=== PATIENT | female | born 1995 | race Caucasian/White ===

== ENCOUNTER 2017-06-06 19:45 | Emergency (ER) | payer OTHER, BC ==
[2017-06-06 20:06] VITALS: BP 126/73; PULSE 71; TEMP 97.9
--- NOTE | 2017-06-06 21:01 | PDOC ---
History of Present Illness - General History Source: Patient, Significant Other Exam Limitations: No Limitations - History of Present Illness Initial Comments: 06/06/17 21:54 The patient is a 22 year old female with a significant PMH of kidney stones and low blood pressure who presents to the emergency department with a headache, nausea, and vomiting beginning at approximately 2:00PM today. The patient reports that she was at work and got yelled at, after which the headache began on her frontal side with associated vomiting. The patient notes the headache feels like a ball within a hollow vessel that rolls to either side as she turns her head. She notes that her nausea is aggravated by walking. The patient notes having a migraine episode on her left temporal region in the past, where she reports seeing garcía. The patient reports that she is on oral contraceptives. The patient denies chest pain or shortness of breath. Denies fever, chills, diarrhea or constipation. Denies dysuria, frequency, urgency or hematuria. LMP: Currently menstruating Allergies: NKDA Past surgical history: Kidney stone removal Social history: No reported cigarette, alcohol, or drug use. <Mahad Johnson - Last Filed: 06/06/17 22:28> <Yeimy He - Last Filed: 06/07/17 02:25> - General Chief Complaint: Lightheaded Stated Complaint: FATIGUE, DIZINESS Time Seen by Provider: 06/06/17 20:55 Past History <Mahad Johnson - Last Filed: 06/06/17 22:28> - Past Medical History Anemia: No Asthma: No Cancer: No Cardiac Disorders: No CVA: No COPD: No CHF: No Dementia: No Diabetes: No GI Disorders: No Disorders: Yes (kidney stones) HTN: No Hypercholesterolemia: No Liver Disease: No Suicide Attempt (Hx): No Seizures: No Thyroid Disease: No - Surgical History Abdominal Surgery: No Appendectomy: No Cardiac Surgery: No Cholecystectomy: No Lung Surgery: No Neurologic Surgery: No Orthopedic Surgery: No - Reproductive History (#): 0 Para: 0 Therapeutic (s) & number: No Spontaneous : 0 - Immunization History Td Vaccination: Yes Immunization Up to Date: Yes - Psycho/Social/Smoking Cessation Hx Anxiety: No Suicidal Ideation: No Smoking Status: No Smoking History: Never smoked Years of Tobacco Use: 0 Number of Cigarettes Smoked Daily: 0 Cigars Per Day: 0 Information on smoking cessation initiated: No Hx Alcohol Use: No Drug/Substance Use Hx: No Substance Use Type: None Hx Substance Use Treatment: No <HeYeimy wild - Last Filed: 06/07/17 02:25> - Past Medical History Allergies/Adverse Reactions: Allergies Allergy/AdvReac Type Severity Reaction Status Date / Time No Known Drug Allergies AdvReac Unknown Verified 06/06/17 20:03 Home Medications: Ambulatory Orders Amoxicillin - [Amoxicillin 500mg Capsule -] 500 mg PO TID #21 capsule 05/11/16 Review of Systems - Review of Systems Comments:: 06/06/17 21:54 GENERAL/CONSTITUTIONAL: No fever or chills. No weakness. HEAD, EYES, EARS, NOSE AND THROAT: No change in vision. No ear pain or discharge. No sore throat. CARDIOVASCULAR: No chest pain or shortness of breath. RESPIRATORY: No cough, wheezing, or hemoptysis. GASTROINTESTINAL: (+) Nausea. (+) Vomiting. No diarrhea or constipation. GENITOURINARY: No dysuria, frequency, or change in urination. MUSCULOSKELETAL: No joint or muscle swelling or pain. No neck or back pain. SKIN: No rash NEUROLOGIC: (+) Headache. No, vertigo, loss of consciousness, or change in strength/sensation. ENDOCRINE: No increased thirst. No abnormal weight change. HEMATOLOGIC/LYMPHATIC: No anemia, easy bleeding, or history of blood clots. ALLERGIC/IMMUNOLOGIC: No hives or skin allergy. <Mahad Johnson - Last Filed: 06/06/17 22:28> *Physical Exam - Vital Signs Last Vital Signs Temp Pulse Resp BP Pulse Ox 97.9 F 71 20 126/73 100 06/06/17 20:03 06/06/17 20:03 06/06/17 20:03 06/06/17 20:03 06/06/17 20:03 - Physical Exam Comments: 06/06/17 22:28 GENERAL: Awake, alert, and fully oriented, in no acute distress HEAD: No signs of trauma EYES: PERRLA, EOMI, sclera anicteric, conjunctiva clear ENT: Auricles normal inspection, hearing grossly normal, nares patent, oropharynx clear without exudates. Moist mucosa NECK: Normal ROM, supple, no lymphadenopathy, JVD, or masses LUNGS: Breath sounds equal, clear to auscultation bilaterally. No wheezes, and no crackles HEART: Regular rate and rhythm, normal S1 and S2, no murmurs, rubs or gallops ABDOMEN: Soft, nontender, normoactive bowel sounds. No guarding, no rebound. No masses EXTREMITIES: Normal range of motion, no edema. No clubbing or cyanosis. No cords, erythema, or tenderness NEUROLOGICAL: Cranial nerves II through XII grossly intact. Normal speech, normal gait SKIN: Warm, Dry, normal turgor, no rashes or lesions noted. <Mahad Johnson - Last Filed: 06/06/17 22:28> - Vital Signs Last Vital Signs Temp Pulse Resp BP Pulse Ox 97.9 F 71 20 126/73 100 06/06/17 20:03 06/06/17 20:03 06/06/17 20:03 06/06/17 20:03 06/06/17 20:03 <Yeimy He - Last Filed: 06/07/17 02:25> ED Treatment Course - LABORATORY CBC & Chemistry Diagram: 06/06/17 21:15 06/06/17 21:15 <Mahad Johnson - Last Filed: 06/06/17 22:28> - LABORATORY CBC & Chemistry Diagram: 06/06/17 21:15 06/06/17 21:15 <Yeimy He - Last Filed: 06/07/17 02:25> Medical Decision Making - Medical Decision Making 06/07/17 02:15 Pt came with severe headache. States that it is the worst headache she experienced, and it coincided with a 2PM argument with one of her bosses at work. Pt went home and experienced vomiting at 6PM. Pt has normal labs and CT brain; CTA is also normal. Pt feels better after treatment with tylenol IV. Pt felt even better with NSS 1L and motrin Vast improvement. SHe later let me know that she had a migraine with an aura once and currently has a pain around her forehead. This may just be a migraine vs stress MERAZ. SHe will be referred to neuro, Exam/neuro exam remains normal. Pt has no photophobia and she is feeling great. No more N/V d/c home. <Yeimy He - Last Filed: 06/07/17 02:25> *DC/Admit/Observation/Transfer - Attestations Scribe Attestion: 06/06/17 22:28 Documentation prepared by Mahad Johnson, acting as medical laboratory manager for Yeimy He MD. <Mahad Johnson - Last Filed: 06/06/17 22:28> - Discharge Dispostion Admit: No <Yeimy He - Last Filed: 06/07/17 02:25> Diagnosis at time of Disposition: Headache - Discharge Dispostion Disposition: HOME Condition at time of disposition: Stable - Referrals Referrals: Hudson Siu DO [Staff Physician] - - Patient Instructions Printed Discharge Instructions: Easing a Headache [address], DI for Migraine, Tension Headache
[2017-06-06] MEDS ORDERED: ACETAMINOPHEN 1000 MG/100 ML VIAL (NON FORMULARY) IVPB ONE (21:03)
[2017-06-06 21:33] LABS: BASOPHIL 0.5 % (0-2.0); EOSINOPHIL 1.3 % (0-4.5); MCH 30.7 pg (25.7-33.7); MCHC 33.5 g/dl (32.0-36.0); MEAN CELL VOLUME 91.8 fl (80-96); MEAN PLT VOLUME 7.3 fl (7.5-11.1); NEUTROPHILS 69.4 % (42.8-82.8); PLATELET COUNT 343 K/MM3 (134-434); RDW 12.8 % (11.6-15.6); WHITE BLOOD COUNT 10.5 K/mm3 (4.0-10.0)
[2017-06-06 21:47] LABS: INR 0.99 (0.82-1.09); PROTHROMBIN TIME (PATIENT) 10.9 SEC (9.98-11.88)
[2017-06-06 21:50] LABS: ACTIVATED PTT 28.2 SECONDS (26.9-34.4)
[2017-06-06] MEDS ORDERED: SODIUM CHLORIDE 0.9% 500 ML INFUS.BAG IV ONE (21:57)
[2017-06-06 22:01] LABS: ALBUMIN 3.9 g/dl (3.4-5.0); ANION GAP 6 (8-16); CALCIUM 9.6 mg/dL (8.5-10.1); CO2 28 mmol/L (21-32); CREATININE 0.9 mg/dL (0.55-1.02); GLUCOSE,RANDOM 95 mg/dL (74-106); SGOT/AST 16 U/L (15-37); SGPT/ALT 42 U/L (12-78)
[2017-06-06 22:04] LABS: ALK PHOS 61 U/L (45-117); BILIRUBIN,TOTAL 0.5 mg/dL (0.2-1.0); TOT PROT 7.7 g/dl (6.4-8.2)
[2017-06-06] MEDS ORDERED: IBUPROFEN 600 MG TABLET (FP) PO ONE (22:22)
[2017-06-06] MEDS ORDERED: ACETAMINOPHEN INJECTION 100 ML IVPB ONE (22:45)
== END 2017-06-06 23:10 | disposition home or self-care (01) ==
LOC: JER 19:45
PROC: 3E033NZ Introduction of Analgesics, Hypnotics, Sedatives into Peripheral Vein, Percutaneous Approach (ICD-10-PCS; principal; 2017-06-06)
DX: R51 Headache (principal); Z87.442 Personal history of urinary calculi
CPT/HCPCS: 36415; 70450-TC; 70496-TC; 80053; 85025; 85610; 85730; 86850; 86900; 86901; 99282-25

== ENCOUNTER 2017-07-22 20:05 | Emergency (ER) | payer BC, OTHER ==
[2017-07-22 20:12] VITALS: BP 147/100; PULSE 135; TEMP 98.9; BMI 21.4
--- NOTE | 2017-07-22 20:14 | PDOC ---
History of Present Illness - General Chief Complaint: Pain, Acute Stated Complaint: PAIN, ACUTE Time Seen by Provider: 07/22/17 20:14 History Source: Patient Exam Limitations: No Limitations - History of Present Illness Travel History: No Initial Comments: 07/22/17 22:08 22-year-old female with a history of renal colic presents to the emergency department complaining of right greater than left flank pain. Pain is described as 8/10 sharp nonradiating intermittent discomfort. Patient denies any fever, chills, nausea/vomiting, neck pains, chest pain, shortness of breath, abdominal pains, urinary symptoms: Frequency/urgency/hesitancy, hematuria. There are no alleviating or exacerbating factors. Timing/Duration: reports: intermittent Quality: reports: stabbing Abdominal Pain Onset Location: reports: flank (R>L) Pain Radiation: reports: no radiation Past History - Past Medical History Allergies/Adverse Reactions: Allergies Allergy/AdvReac Type Severity Reaction Status Date / Time No Known Drug Allergies AdvReac Unknown Verified 07/22/17 20:12 Home Medications: Ambulatory Orders Amoxicillin - [Amoxicillin 500mg Capsule -] 500 mg PO TID #21 capsule 05/11/16 Ketorolac Tromethamine [Toradol] 10 mg PO TID #21 tablet 07/22/17 Anemia: No Asthma: No Cancer: No Cardiac Disorders: No CVA: No COPD: No CHF: No Dementia: No Diabetes: No GI Disorders: No Disorders: Yes (kidney stones) HTN: No Hypercholesterolemia: No Liver Disease: No Seizures: No Thyroid Disease: No - Surgical History Abdominal Surgery: No Appendectomy: No Cardiac Surgery: No Cholecystectomy: No Lung Surgery: No Neurologic Surgery: No Orthopedic Surgery: No - Reproductive History (#): 0 Para: 0 Therapeutic (s) & number: No Spontaneous : 0 - Immunization History Td Vaccination: Yes Immunization Up to Date: Yes - Suicide/Smoking/Psychosocial Hx Smoking Status: No Smoking History: Never smoked Years of Tobacco Use: 0 Have you smoked in the past 12 months: No Number of Cigarettes Smoked Daily: 0 Cigars Per Day: 0 Information on smoking cessation initiated: No Hx Alcohol Use: No Drug/Substance Use Hx: No Substance Use Type: None Hx Substance Use Treatment: No Review of Systems - Review of Systems Able to Perform ROS?: Yes Comments:: 07/22/17 22:07 CONSTITUTIONAL: Absent: fever, chills, diaphoresis, generalized weakness, malaise, loss of appetite HEENT: Absent: rhinorrhea, nasal congestion, throat pain, throat swelling, difficulty swallowing, mouth swelling, ear pain, eye pain, visual Changes CARDIOVASCULAR: Absent: chest pain, loss of consciousness, palpitations, irregular heart rate, peripheral edema RESPIRATORY: Absent: cough, shortness of breath, dyspnea with exertion, orthopnea, wheezing, stridor, hemoptysis GASTROINTESTINAL: Absent: abdominal pain, abdominal distension, nausea, vomiting, diarrhea, constipation, melena, hematochezia GENITOURINARY: R>L flank pain Absent: dysuria, frequency, urgency, hesitancy, hematuria, genital pain MUSCULOSKELETAL: +B/L Flank pain Absent: myalgia, arthralgia, joint swelling SKIN: Absent: rash, itching, pallor HEMATOLOGIC/IMMUNOLOGIC: Absent: easy bleeding, easy bruising, lymphadenopathy, frequent infections Is the patient limited Setswana proficient: No *Physical Exam - Vital Signs Last Vital Signs Temp Pulse Resp BP Pulse Ox 98.9 F 135 H 23 147/100 100 07/22/17 20:10 07/22/17 20:10 07/22/17 20:10 07/22/17 20:10 07/22/17 20:10 - Physical Exam Comments: 07/22/17 22:07 GENERAL: Well developed, well nourished. Awake and alert. No acute distress. HEENT: Normocephalic, atraumatic. PERRLA, EOMI. No conjunctival pallor. Sclera are non- icteric. Moist mucous membranes. Oropharynx is clear. NECK: Supple. Full ROM. No JVD. Carotid pulses 2+ and symmetric, without bruits. No thyromegaly. No lymphadenopathy. CARDIOVASCULAR: Regular rate and rhythm. No murmurs, rubs, or gallops. Distal pulses are 2+ and symmetric. PULMONARY: No evidence of respiratory distress. Lungs clear to auscultation bilaterally. No wheezing, rales or rhonchi. ABDOMINAL: Soft. Non-tender. Non-distended. No rebound or guarding. No organomegaly. Normoactive bowel sounds. MUSCULOSKELETAL +CVAT B/L Normal range of motion at all joints. No bony deformities or tenderness. EXTREMITIES: No cyanosis. No clubbing. No edema. No calf tenderness. SKIN: Warm and dry. Normal capillary refill. No rashes. No jaundice. ED Treatment Course - LABORATORY CBC & Chemistry Diagram: 07/22/17 20:30 07/22/17 20:30 - RADIOLOGY Radiograph Interpretation: 07/22/17 22:09 CT renal colic: Several bilateral nonobstructing renal calculi are noted ranging in diameter from 1-2 mm. Several punctate bilateral nonobstructing renal calculi are noted. No obstructive uropathy is seen. Diffuse colonic fecal retention is noted which is at least moderate *DC/Admit/Observation/Transfer Diagnosis at time of Disposition: Renal colic, bilateral, Fecal impaction of colon - Discharge Dispostion Disposition: HOME Condition at time of disposition: Stable Admit: No - Referrals Referrals: Kendall Kelly MD., MD [Staff Physician] - - Patient Instructions Printed Discharge Instructions: Kidney Stones -- Adult, DI for Fecal Impaction Additional Instructions: Follow-up with urology Increase fluids Return to the ER for severe/persistent/worsening symptoms
[2017-07-22] MEDS ORDERED: SODIUM CHLORIDE 1,000 ML IV STA (20:15)
[2017-07-22] MEDS ORDERED: KETOROLAC TROMETHAMINE 30 MG/1 ML VIAL ONE (20:32)
[2017-07-22] MEDS ORDERED: ONDANSETRON 4 MG/2 ML VIAL ONE (20:32)
[2017-07-22 20:38] LABS: BASOPHIL 0.1 % (0-2.0); EOSINOPHIL 0.8 % (0-4.5); MCH 31.4 pg (25.7-33.7); MCHC 33.8 g/dl (32.0-36.0); MEAN PLT VOLUME 7.1 fl (7.5-11.1); NEUTROPHILS 87.2 % (42.8-82.8); PLATELET COUNT 236 K/MM3 (134-434); RDW 13.5 % (11.6-15.6); WHITE BLOOD COUNT 8.7 K/mm3 (4.0-10.0)
[2017-07-22 20:42] LABS: URINE APPEARANCE CLEAR; URINE BILIRUBIN NEGATIVE (NEGATIVE); URINE BLOOD 1+ (NEGATIVE); URINE COLOR LTYELLOW; URINE GLUCOSE (UA) NEGATIVE (NEGATIVE); URINE KETONE NEGATIVE (NEGATIVE); URINE LEUK ESTERASE NEGATIVE (NEGATIVE); URINE NITRITE NEGATIVE (NEGATIVE); URINE PROTEIN NEGATIVE (NEGATIVE); URINE UROBILINOGEN NEGATIVE mg/dL (0.2-1.0)
--- NOTE | 2017-07-22 21:06 | PDOC ---
*Physical Exam - Vital Signs Last Vital Signs Temp Pulse Resp BP Pulse Ox 98.9 F 135 H 23 147/100 100 07/22/17 20:10 07/22/17 20:10 07/22/17 20:10 07/22/17 20:10 07/22/17 20:10 ED Treatment Course - LABORATORY CBC & Chemistry Diagram: 07/22/17 20:30 07/22/17 20:30 - ADDITIONAL ORDERS Additional order review: Laboratory Results 07/22/17 20:30 Urine HCG, Qual Negative 07/22/17 20:30 RBC 4.26 MCV 93.0 MCHC 33.8 RDW 13.5 MPV 7.1 L Neutrophils % 87.2 H D Lymphocytes % 9.7 D Monocytes % 2.2 L Eosinophils % 0.8 Basophils % 0.1 Medical Decision Making - Medical Decision Making 07/22/17 21:06 agree with care from J[facility] Artis *DC/Admit/Observation/Transfer Diagnosis at time of Disposition: Renal colic, bilateral, Fecal impaction of colon - Discharge Dispostion Disposition: HOME Condition at time of disposition: Stable - Prescriptions Prescriptions: Ketorolac Tromethamine [Toradol] 10 mg PO TID #21 tablet - Referrals Referrals: Kendall Kelly MD., MD [Staff Physician] - - Patient Instructions Printed Discharge Instructions: Kidney Stones -- Adult, DI for Fecal Impaction Additional Instructions: Follow-up with urology Increase fluids Return to the ER for severe/persistent/worsening symptoms
[2017-07-22 21:13] LABS: URINE BACTERIA RARE /hpf (NONE SEEN); URINE MUCUS RARE; URINE RBC 15 /hpf (0-3); URINE WBC 1 /hpf (3-5)
[2017-07-22 21:30] LABS: ALBUMIN 3.7 g/dl (3.4-5.0); ANION GAP 6 (8-16); CALCIUM 8.7 mg/dL (8.5-10.1); CO2 27 mmol/L (21-32); CREATININE 0.9 mg/dL (0.55-1.02); GLUCOSE,RANDOM 119 mg/dL (74-106); SGOT/AST 13 U/L (15-37); SGPT/ALT 24 U/L (12-78)
[2017-07-22 21:32] LABS: ALK PHOS 56 U/L (45-117); BILIRUBIN,TOTAL 0.8 mg/dL (0.2-1.0); TOT PROT 7.4 g/dl (6.4-8.2)
== END 2017-07-22 22:34 | disposition home or self-care (01) ==
LOC: JER 20:05 → SUPCPDRO 20:05 → JER 22:34
PROC: 3E0337Z Introduction of Electrolytic and Water Balance Substance into Peripheral Vein, Percutaneous Approach (ICD-10-PCS; principal; 2017-07-22)
DX: N20.0 Calculus of kidney (principal); K59.00 Constipation, unspecified
CPT/HCPCS: 36415; 74176; 80053; 81003; 81015; 84703; 85025; 99282-25

== ENCOUNTER 2019-10-16 13:57 | Emergency (ER) | payer BC ==
[2019-10-16 14:16] VITALS: TEMP 99.1; BMI 20.6
[2019-10-16] MEDS ORDERED: KETOROLAC TROMETHAMINE 30 MG/1 ML VIAL IVPUSH ONE (14:48)
[2019-10-16] MEDS ORDERED: SODIUM CHLORIDE 0.9% 500 ML INFUS.BAG IV ONE (14:48)
[2019-10-16] MEDS ORDERED: ONDANSETRON 4 MG/2 ML VIAL IVPUSH ONE (14:48)
--- NOTE | 2019-10-16 14:48 | PDOC ---
History of Present Illness - History of Present Illness Initial Comments: 10/16/19 14:44 CHIEF COMPLAINT: kidney stone HISTORY OF PRESENT ILLNESS: 24 yo F with significant 11 year hx of kidney stones presents to ED with b/l flank pain from kidney stone. Patient reports the pain is 10/10 and has not been controlled by hydrocodone that was prescribed by her urology CD REACTOR OPERATOR. She states she has two procedures for her stones and was advised by her urology CD REACTOR OPERATOR to come to the ER in to manage the pain "before I start vomiting." Followed by urology CD REACTOR OPERATOR Geri. No recent travel or sick contacts. PAST MEDICAL HISTORY: recurrent kidney stones FAMILY HISTORY: Denies SOCIAL HISTORY: Denies tobacco, alcohol, illicit drug use. SURGICAL HISTORY: Denies ALLERGIES: No known drug allergies REVIEW OF SYSTEMS General/Constitutional: Denies fever or chills. Denies weakness, weight change. HEENT: Denies change in vision. Denies ear pain or discharge. Denies sore throat. Cardiovascular: Denies chest pain or shortness of breath. Respiratory: Denies cough, wheezing, or hemoptysis. Gastrointestinal: Denies nausea, vomiting, diarrhea or constipation. Denies rectal bleeding. Genitourinary: "I have kidney stones again." Musculoskeletal: Denies joint or muscle swelling or pain. Denies neck or back pain. Skin and breasts: Denies rash or easy bruising. Neurologic: Denies headache, vertigo, loss of consciousness, or loss of sensation. Psychiatric: Denies depression or anxiety. PHYSICAL EXAM General Appearance: Well-appearing, appropriately dressed. No apparent distress , no intoxication. HEENT: EOMI, PERRLA, normal ENT inspection, normal voice, TMs normal, pharynx normal. No conjunctival pallor. No photophobia, scleral icterus. Neck: Supple. Trachea midline. No tenderness, rigidity, carotid bruit, stridor , lymphadenopathy, or thyromegaly. Respiratory/Chest: Lungs CTAB. No shortness of breath, chest tenderness, respiratory distress, accessory muscle use. No crackles, rales, rhonchi, stridor , wheezing, dullness Cardiovascular: RRR. S1, S2. No JVD, murmur, bradycardia, tachycardia. Vascular Pulses: Dorsalis-Pedis (R): 2+, Dorsalis-Pedis (L): 2+ Gastrointestinal/Abdominal: Normal bowel sounds. Abdomen soft, non-distended. No tenderness or rebound tenderness. No organomegaly, pulsatile mass, guarding , hernia, hepatomegaly, splenomegaly. Lymphatic: No adenopathy, tenderness. Musculoskeletal/Extremities: B/l VA tenderness. Normal inspection. FROM of all extremities, normal capillary refill. Pelvis Stable. No CVA tenderness. No tenderness to extremities, pedal edema, swelling, erythema or deformity. Integumentary: Appropriate color, dry, warm. No cyanosis, erythema, jaundice or rash Neurologic: operations section manager II-XII intact. Fully oriented, alert. Appropriate mood/affect. Motor strength 5/5. No appreciable EOM palsy, facial droop or sensory deficit. <Aleisha Bradford - Last Filed: 10/16/19 16:17> <Chela العلي - Last Filed: 10/16/19 16:36> - General Chief Complaint: Pain, Acute Stated Complaint: KIDNEY STONE Time Seen by Provider: 10/16/19 14:30 Past History - Past Medical History Anemia: No Asthma: No Cancer: No Cardiac Disorders: No CVA: No COPD: No CHF: No Dementia: No Diabetes: No GI Disorders: No Disorders: Yes (kidney stones) HTN: No Hypercholesterolemia: No Liver Disease: No Seizures: No Thyroid Disease: No - Surgical History Abdominal Surgery: No Appendectomy: No Cardiac Surgery: No Cholecystectomy: No Lung Surgery: No Neurologic Surgery: No Orthopedic Surgery: No - Reproductive History (#): 0 Para: 0 Therapeutic (s) & number: No Spontaneous : 0 - Immunization History Td Vaccination: Yes Immunization Up to Date: Yes - Psycho Social/Smoking Cessation Hx Smoking Status: No Smoking History: Never smoked Years of Tobacco Use: 0 Have you smoked in the past 12 months: No Number of Cigarettes Smoked Daily: 0 Cigars Per Day: 0 Hx Alcohol Use: No Drug/Substance Use Hx: No Substance Use Type: None Hx Substance Use Treatment: No <Aleisha Bradford - Last Filed: 10/16/19 16:17> <Chela العلي - Last Filed: 10/16/19 16:36> - Past Medical History Allergies/Adverse Reactions: Allergies Allergy/AdvReac Type Severity Reaction Status Date / Time No Known Drug Allergies AdvReac Unknown Verified 10/16/19 14:12 Home Medications: Ambulatory Orders Amoxicillin - [Amoxicillin 500mg Capsule -] 500 mg PO TID #21 capsule 05/11/16 Ketorolac Tromethamine [Toradol] 10 mg PO TID #21 tablet 07/22/17 Tamsulosin HCl [Flomax] 0.4 mg PO DAILY #20 cap.er.24h 10/16/19 *Physical Exam - Vital Signs Last Vital Signs Temp Pulse Resp BP Pulse Ox 99.1 F 105 H 18 141/73 100 10/16/19 14:09 10/16/19 14:09 10/16/19 14:09 10/16/19 14:09 10/16/19 14:09 <Aleisha Bradford - Last Filed: 10/16/19 16:17> - Vital Signs Last Vital Signs Temp Pulse Resp BP Pulse Ox 99.1 F 105 H 18 141/73 100 10/16/19 14:09 10/16/19 14:09 10/16/19 14:09 10/16/19 14:09 10/16/19 14:09 <Chela العلي - Last Filed: 10/16/19 16:36> ED Treatment Course - ADDITIONAL ORDERS Additional order review: Laboratory Results 10/16/19 10/16/19 15:10 15:10 Urine Color Yellow Urine Appearance Clear Urine pH 6.5 D Ur Specific [place] 1.012 Urine Protein Negative Urine Glucose (UA) Negative Urine Ketones Negative Urine Blood Negative Urine Nitrite Negative Urine Bilirubin Negative Urine Urobilinogen 0.2 Ur Leukocyte Esterase Negative Urine HCG, Qual Negative - Medications Given in the ED: ED Medications Discontinued Medications Generic Name Dose Route Start Last Admin Trade Name Shawna PRN Reason Stop Dose Admin Ketorolac Tromethamine 30 mg 10/16/19 14:48 10/16/19 15:08 Toradol Injection - IVPUSH 10/16/19 14:49 30 mg ONCE ONE Administration Ondansetron HCl 4 mg 10/16/19 14:48 10/16/19 15:08 Zofran Injection IVPUSH 10/16/19 14:49 4 mg ONCE ONE Administration Sodium Chloride 1,000 ml 10/16/19 14:48 10/16/19 15:08 Normal Saline - IV 10/16/19 14:49 1,000 ml ONCE ONE Administration Tamsulosin HCl 0.4 mg 10/16/19 15:55 10/16/19 16:12 Flomax - PO 10/16/19 15:56 0.4 mg ONCE ONE Administration <Chela العلي - Last Filed: 10/16/19 16:36> Medical Decision Making - Medical Decision Making 10/16/19 15:48 24 yo F with significant 11 year hx of kidney stones presents to ED with b/l flank pain from kidney stone. -urine -toradol -US 10/16/19 15:54 US shows nonobstructing stones to b/l kidneys, largest measuring 0.6cm. Will rx flomax. Patient understand she will need to continue f/u with urologist. <Aleisha Bradford - Last Filed: 10/16/19 16:17> - Medical Decision Making The patient was seen and evaluated in conjunction with midlevel provider under my direct supervision, ancillary studies were reviewed. I agree with the plan as outlined with CD REACTOR OPERATOR Suzette. HPI, workup/dispo as outlined. VS reviewed, nontoxic, no fever. mild tachy likely pain. h/o stones, sono showed nonobstructing stones. defer further imaging/radiation at this time due to age and prior history, treat supportively, urology followup UA unremarkable. no s/s infection anticipate discharge, pcp followup, return precautions 10/16/19 16:35 10/16/19 16:36 <Chela العلي - Last Filed: 10/16/19 16:36> Discharge - Discharge Information Problems reviewed: Yes - Admission No <Aleisha Bradfrod - Last Filed: 10/16/19 16:17> <Chela العلي - Last Filed: 10/16/19 16:36> - Discharge Information Clinical Impression/Diagnosis: Kidney stones Condition: Stable Disposition: HOME - Additional Discharge Information Prescriptions: Tamsulosin HCl [Flomax] 0.4 mg PO DAILY #20 cap.er.24h - Patient Discharge Instructions Patient Printed Discharge Instructions: DI for Kidney Stones Additional Instructions: Please take your medications as prescribed. As discussed, you will need to f/u with your urologist for further management of your recurrent stones. If you develop any new or worsening pain, please return to the ER immediately.
[2019-10-16] MEDS ORDERED: KETOROLAC TROMETHAMINE 30 MG/1 ML VIAL ONE (14:53)
[2019-10-16] MEDS ORDERED: ONDANSETRON 4 MG/2 ML VIAL ONE (14:54)
[2019-10-16] MEDS ORDERED: TAMSULOSIN HCL 0.4 MG CAP PO ONE (15:55)
[2019-10-16 15:57] LABS: PH,URINE 6.5 (5.0-8.0); URINE APPEARANCE CLEAR; URINE BILIRUBIN NEGATIVE (NEGATIVE); URINE COLOR YELLOW; URINE GLUCOSE (UA) NEGATIVE (NEGATIVE); URINE KETONE NEGATIVE (NEGATIVE); URINE LEUK ESTERASE NEGATIVE (NEGATIVE); URINE NITRITE NEGATIVE (NEGATIVE); URINE PROTEIN NEGATIVE (NEGATIVE); URINE UROBILINOGEN 0.2 mg/dL (0.2-1.0)
[2019-10-16] MEDS ORDERED: TAMSULOSIN HCL 0.4 MG CAP ONE (16:03)
[2019-10-16 16:46] VITALS: BP 95/63; PULSE 88
== END 2019-10-16 16:45 | disposition home or self-care (01) ==
LOC: JER 13:57
PROC: 3E033GC Introduction of Other Therapeutic Substance into Peripheral Vein, Percutaneous Approach (ICD-10-PCS; principal; 2019-10-16)
PROC: 3E0333Z Introduction of Anti-inflammatory into Peripheral Vein, Percutaneous Approach (ICD-10-PCS; 2019-10-16)
DX: N20.0 Calculus of kidney (principal); Z87.442 Personal history of urinary calculi
CPT/HCPCS: 76775-TC; 81003; 84703; 87086; 99283-25

== ENCOUNTER 2019-12-17 09:05 | Emergency (ER) | payer BC, OTHER ==
[2019-12-17 09:09] VITALS: TEMP 98.2; BMI 22.3
--- NOTE | 2019-12-17 09:15 | PDOC ---
History of Present Illness - General History Source: Patient Exam Limitations: No Limitations <Pippa Huerta - Last Filed: 12/17/19 11:27> <Chela العلي - Last Filed: 12/17/19 11:49> - General Chief Complaint: Pain, Acute Stated Complaint: KIDNEY STONES Time Seen by Provider: 12/17/19 09:11 Past History - Travel Traveled outside of the country in the last 30 days: No Close contact w/someone who was outside of country & ill: No - Past Medical History Anemia: No Asthma: No Cancer: No Cardiac Disorders: No CVA: No COPD: No CHF: No Dementia: No Diabetes: No GI Disorders: No Disorders: Yes (kidney stones) HTN: No Hypercholesterolemia: No Liver Disease: No Seizures: No Thyroid Disease: No - Surgical History Abdominal Surgery: No Appendectomy: No Cardiac Surgery: No Cholecystectomy: No Lung Surgery: No Neurologic Surgery: No Orthopedic Surgery: No - Reproductive History (#): 0 Para: 0 Therapeutic (s) & number: No Spontaneous : 0 - Immunization History Td Vaccination: Yes Immunization Up to Date: Yes - Psycho Social/Smoking Cessation Hx Smoking Status: No Smoking History: Never smoked Years of Tobacco Use: 0 Have you smoked in the past 12 months: No Number of Cigarettes Smoked Daily: 0 Cigars Per Day: 0 Hx Alcohol Use: No Drug/Substance Use Hx: No Substance Use Type: None Hx Substance Use Treatment: No <Pippa Huerta - Last Filed: 12/17/19 11:27> <Chela العلي - Last Filed: 12/17/19 11:49> - Past Medical History Allergies/Adverse Reactions: Allergies Allergy/AdvReac Type Severity Reaction Status Date / Time No Known Drug Allergies AdvReac Unknown Verified 10/16/19 14:12 Home Medications: Ambulatory Orders Amoxicillin - [Amoxicillin 500mg Capsule -] 500 mg PO TID #21 capsule 05/11/16 Ketorolac Tromethamine [Toradol] 10 mg PO TID #21 tablet 07/22/17 Tamsulosin HCl [Flomax] 0.4 mg PO DAILY #20 cap.er.24h 10/16/19 Ketorolac Tromethamine [Toradol] 10 mg PO TID #21 tablet 12/17/19 Ondansetron [Zofran Odt -] 4 mg SL TID #10 od.tablet 12/17/19 Tamsulosin HCl [Flomax] 0.4 mg PO DAILY #7 capsule 12/17/19 Review of Systems - Review of Systems Able to Perform ROS?: Yes Comments:: 12/17/19 09:14 CONSTITUTIONAL: Absent: fever, chills, diaphoresis, generalized weakness, malaise, loss of appetite HEENT: Absent: rhinorrhea, nasal congestion, throat pain, throat swelling, difficulty swallowing, mouth swelling, ear pain, eye pain, visual Changes CARDIOVASCULAR: Absent: chest pain, loss of consciousness, palpitations, irregular heart rate, peripheral edema RESPIRATORY: Absent: cough, shortness of breath, dyspnea with exertion, orthopnea, wheezing, stridor, hemoptysis GASTROINTESTINAL: Present: nausea Absent: abdominal pain, abdominal distension, nausea, vomiting, diarrhea, constipation, melena, hematochezia GENITOURINARY: Present: L flank pain Absent: dysuria, frequency, urgency, hesitancy, hematuria , flank pain, genital pain MUSCULOSKELETAL: Absent: myalgia, arthralgia, joint swelling SKIN: Absent: rash, itching, pallor HEMATOLOGIC/IMMUNOLOGIC: Absent: easy bleeding, easy bruising, lymphadenopathy, frequent infections ENDOCRINE: Absent: unexplained weight gain, unexplained weight loss, heat intolerance, cold intolerance NEUROLOGIC: Absent: headache, focal weakness or paresthesias, dizziness, unsteady gait, seizure, mental status changes, bladder or bowel incontinence PSYCHIATRIC: Absent: anxiety, depression, suicidal or homicidal ideation, hallucinations. Is the patient limited [place]er proficient: No <Pippa Huerta - Last Filed: 12/17/19 11:27> *Physical Exam - Vital Signs Last Vital Signs Temp Pulse Resp BP Pulse Ox 98.2 F 95 H 18 111/68 99 12/17/19 09:06 12/17/19 09:06 12/17/19 09:06 12/17/19 09:06 12/17/19 09:06 - Physical Exam 12/17/19 09:14 GENERAL: Well developed, well nourished. Awake and alert. No acute distress. HEENT: Normocephalic, atraumatic. PERRLA, EOMI. No conjunctival pallor. Sclera are non- icteric. Moist mucous membranes. NECK: Supple. Full ROM. CARDIOVASCULAR: Regular rate and rhythm. No murmurs, rubs, or gallops. Distal pulses are 2+ and symmetric. PULMONARY: No evidence of respiratory distress. Lungs clear to auscultation bilaterally. No wheezing, rales or rhonchi. ABDOMINAL: Soft. Non-tender. Non-distended. No rebound or guarding. No organomegaly. Normoactive bowel sounds. MUSCULOSKELETAL Normal range of motion at all joints. No bony deformities or tenderness. (+) L CVA tenderness. EXTREMITIES: No cyanosis. No clubbing. No edema. No calf tenderness. SKIN: Warm and dry. Normal capillary refill. No rashes. No jaundice. NEUROLOGICAL: Alert, awake, appropriate. Cranial nerves 2-12 intact. No deficits to light touch and temperature in face, upper extremities and lower extremities. No motor deficits in the in face, upper extremities and lower extremities. Normoreflexic in the upper and lower extremities. Normal speech. Toes are down- going bilaterally. Gait is normal without ataxia. PSYCHIATRIC: <Pippa Huerta - Last Filed: 12/17/19 11:27> - Vital Signs Last Vital Signs Temp Pulse Resp BP Pulse Ox 98.2 F 95 H 18 111/68 99 12/17/19 09:06 12/17/19 09:06 12/17/19 09:06 12/17/19 09:06 12/17/19 09:06 <Chela العلي - Last Filed: 12/17/19 11:49> ED Treatment Course - LABORATORY CBC & Chemistry Diagram: 12/17/19 10:20 12/17/19 10:20 <Pippa Huerta - Last Filed: 12/17/19 11:27> - LABORATORY CBC & Chemistry Diagram: 12/17/19 10:20 12/17/19 10:20 - ADDITIONAL ORDERS Additional order review: 12/17/19 10:20 RBC 4.32 MCV 91.4 MCHC 33.9 RDW 13.2 MPV 7.5 Neutrophils % 82.4 Lymphocytes % 10.0 Monocytes % 6.3 D Eosinophils % 0.9 Basophils % 0.4 D - Medications Given in the ED: ED Medications Discontinued Medications Generic Name Dose Route Start Last Admin Trade Name Freq PRN Reason Stop Dose Admin Sodium Chloride 1,000 mls @ 1,000 mls/hr 12/17/19 09:34 12/17/19 10:14 Normal Saline - IV 12/17/19 10:33 1,000 mls/hr ASDIR STA Administration Ketorolac Tromethamine 30 mg 12/17/19 09:34 12/17/19 10:15 Toradol Injection - IVPUSH 12/17/19 09:35 30 mg ONCE ONE Administration Ondansetron HCl 4 mg 12/17/19 09:35 12/17/19 10:15 Zofran Injection IVPUSH 12/17/19 09:36 4 mg ONCE ONE Administration <Chela العلي - Last Filed: 12/17/19 11:49> Medical Decision Making - Medical Decision Making 12/17/19 10:57 Patient is a 24-year-old female past medical history of renal stones, kidney stones presents to the ER today with left flank pain. She states when she woke up this morning she had sharp and severe left-sided flank pain. She notes that this pain is similar to her past kidney stones. She was last seen in September for similar symptoms. She also admits to nausea. Denies fevers, chills, dysuria, difficulty urinating, and diarrhea. A/P: Kidney stones Patient reports left-sided flank pain however defers testing for CVA tenderness as she knows is going to hurt. Abdomen is soft, nontender without rebound guarding or tenderness. Basic labs, urine ordered. Pocus of the bladder and kidneys ordered. No obvious hydronephrosis or stones seen on exam. Exam performed by Dr. Luz and Dr. العلي. Toradol and fluids given for pain with relief of symptoms. Patient pending lab work for discharge. 12/17/19 11:27 Times mildly elevated, will have patient follow-up with her primary care doctor. Creatinine BUN within normal limits. Urine is negative for infection. We will treat this as a kidney stone. Most likely a small stone as her symptoms are more to her prior episodes. Will defer CT as she is had multiple in the past and this is like her past episodes. Discharge home with pain relief and nausea medication I discussed the physical exam findings, ancillary test results and final diagnoses with the patient. I answered all of the patient's questions. The patient was satisfied with the care received and felt comfortable with the discharge plan and treatment plan. The Patient agrees to follow up with the primary care physician/specialist within 24-72 hours. Return precautions were given. <Pippa Huerta - Last Filed: 12/17/19 11:27> - Medical Decision Making 12/17/19 10:50 The patient was seen and evaluated in conjunction with midlevel provider under my direct supervision, ancillary studies were reviewed. I agree with the plan as outlined with JESU Huerta. HPI, workup/dispo as outlined. VS reviewed, wnl. bedside pocus neg for hydro. labs and lytes wnl. no leukocytosis, no s/s infection. Cr normal UA neg most likely small stone, sx similar to prior stones. defer CT imaging/radiation risk at this time, as pain and vomiting/nausea can be controlled. anticipate discharge, pcp followup, return precautions 12/17/19 11:49 <Chela العلي - Last Filed: 12/17/19 11:49> Discharge - Discharge Information Problems reviewed: Yes - Admission No <Pippa Huerta - Last Filed: 12/17/19 11:27> <Chela العلي - Last Filed: 12/17/19 11:49> - Discharge Information Clinical Impression/Diagnosis: Kidney stones Condition: Stable Disposition: HOME - Additional Discharge Information Prescriptions: Ketorolac Tromethamine [Toradol] 10 mg PO TID #21 tablet Ondansetron [Zofran Odt -] 4 mg SL TID #10 od.tablet Tamsulosin HCl [Flomax] 0.4 mg PO DAILY #7 capsule - Follow up/Referral Referrals: Marley He [Primary Care Provider] - - Patient Discharge Instructions Patient Printed Discharge Instructions: DI for Kidney Stones Additional Instructions: Your pain is most likely due to your kidney stones. Your ultrasound did not show any concerning findings today. Your lab work did show elevated liver enzymes. This is not related to your kidney stones. Please follow-up with your primary care doctor for repeat blood testing. You may take the Toradol every 8 hours starting tomorrow as needed for pain. You may take the Zofran every 8 hours as needed for nausea or vomiting. Take the Flomax daily to help push the stones out. Follow-up with your urologist as well this week for further management of your symptoms. Return to the ER for fevers, vomiting despite medication, pain when you urinate , if you are unable to urinate, or if you have any changes in your symptoms. - Post Discharge Activity Work/Back to School Note: Back to Work
[2019-12-17] MEDS ORDERED: SODIUM CHLORIDE 1,000 ML IV STA (09:34)
[2019-12-17] MEDS ORDERED: KETOROLAC TROMETHAMINE 30 MG/1 ML VIAL IVPUSH ONE (09:34)
[2019-12-17] MEDS ORDERED: ONDANSETRON 4 MG/2 ML VIAL IVPUSH ONE (09:35)
[2019-12-17] MEDS ORDERED: KETOROLAC TROMETHAMINE 30 MG/1 ML VIAL ONE (09:42)
[2019-12-17] MEDS ORDERED: ONDANSETRON 4 MG/2 ML VIAL ONE (09:42)
[2019-12-17 10:39] LABS: BASO % 0.4 % (0-2.0); EOS % 0.9 % (0-4.5); HEMATOCRIT 39.5 % (32.4-45.2); HEMOGLOBIN 13.4 GM/dL (10.7-15.3); MCHC 33.9 g/dl (32.0-36.0); MEAN CELL VOLUME 91.4 fl (80-96); MEAN PLT VOLUME 7.5 fl (7.5-11.1); MONO % 6.3 % (3.8-10.2); NEUT % 82.4 % (42.8-82.8); PLATELET COUNT 211 K/MM3 (134-434); RBC 4.32 M/mm3 (3.60-5.2); RDW 13.2 % (11.6-15.6); WHITE BLOOD COUNT 5.8 K/mm3 (4.0-10.0)
[2019-12-17 11:19] LABS: PH,URINE 6.5 (5.0-8.0); URINE APPEARANCE CLEAR; URINE BILIRUBIN NEGATIVE (NEGATIVE); URINE COLOR YELLOW; URINE GLUCOSE (UA) NEGATIVE (NEGATIVE); URINE KETONE NEGATIVE (NEGATIVE); URINE LEUK ESTERASE NEGATIVE (NEGATIVE); URINE NITRITE NEGATIVE (NEGATIVE); URINE PROTEIN NEGATIVE (NEGATIVE); URINE UROBILINOGEN 0.2 mg/dL (0.2-1.0)
[2019-12-17 11:21] LABS: BILIRUBIN,TOTAL 0.6 mg/dL (0.2-1); CREATININE 0.8 mg/dL (0.55-1.3); POTASSIUM 4.9 mmol/L (3.5-5.1); TOT PROT 7.6 g/dl (6.4-8.2)
[2019-12-17 12:15] VITALS: BP 92/53; PULSE 83
== END 2019-12-17 12:16 | disposition home or self-care (01) ==
LOC: JER 09:05
PROC: 3E0333Z Introduction of Anti-inflammatory into Peripheral Vein, Percutaneous Approach (ICD-10-PCS; principal; 2019-12-17)
PROC: 3E033GC Introduction of Other Therapeutic Substance into Peripheral Vein, Percutaneous Approach (ICD-10-PCS; 2019-12-17)
DX: N20.0 Calculus of kidney (principal)
CPT/HCPCS: 36415; 76775; 80053; 81003; 84703; 85025; 87086; 99284-25; J7030